=== PATIENT | male | born 1935 | race Caucasian/White ===

== ENCOUNTER 2023-08-10 13:20 | Outpatient (CLI) | payer MEDICARE, OTHER ==
--- NOTE | 2023-08-10 16:02 | XRAY Report ---
PROCEDURE: Ankle 1-2V RT INDICATIONS: PRESSURE ULCER ANKLE TECHNIQUE: 3 views of the ankle were acquired. COMPARISON: None. FINDINGS: Bones: No fractures or dislocations. Ankle mortise is normally aligned. No suspicious bony lesions . No bony erosion. Plantar calcaneal despite Soft tissues: No tibiotalar joint effusion. Achilles tendon appears normal. Vascular microcalcific ations. IMPRESSION: No acute bony abnormality. No bony erosion to suggest osteomyelitis. Reviewed by: Angel Arguelles MD on 08/10/2023 4:00 PM PDT Approved by: Angel Arguelles MD on 08/10/2023 4:00 PM PDT Station ID: [id number]
== END 2023-08-10 13:21 | disposition home or self-care (01) ==
LOC: DI 13:20
PROVIDERS: ATTEND Physician Assistant
DX: L89.509 Pressure ulcer of unspecified ankle, unspecified stage (principal)

== ENCOUNTER 2023-08-10 16:20 | Outpatient (CLI) | payer MEDICARE, OTHER ==
--- NOTE | 2023-08-10 23:25 | Ultrasound Report ---
PROCEDURE: Duplex Ext Veins Right INDICATIONS: ANKLE PRESSURE ULCER TECHNIQUE: Real-time imaging, as well as color and pulse Doppler interrogation, were performed of the lower extr emity deep veins from the inguinal ligament to the popliteal fossa. Attempted visualization of the ca lf veins was performed. COMPARISON: None. FINDINGS: The deep veins are normally compressible, and free of intraluminal thrombus. Color and pu lse Doppler demonstrate normal phasic intraluminal flow. There is normal augmentation response to di stal compression maneuver. IMPRESSION: No deep venous thrombosis of the visualized lower extremity. Reviewed by: Los Pearson MD on 08/10/2023 11:23 PM PDT Approved by: Los Pearson MD on 08/10/2023 11:23 PM PDT Station ID: [id number]
== END 2023-08-10 16:21 | disposition home or self-care (01) ==
LOC: DI 16:20
PROVIDERS: ATTEND Physician Assistant
DX: L89.519 Pressure ulcer of right ankle, unspecified stage (principal)